=== PATIENT | female | born 1985 | race Caucasian/White ===

== ENCOUNTER 2021-04-13 20:05 | Outpatient (CLI) | payer OTHER | END 2021-04-13 22:19 | disposition home or self-care (01) | LOC: GENOP 20:05 | DX: O47.1 False labor at or after 37 completed weeks of gestation (principal); Z3A.37 37 weeks gestation of pregnancy; O99.353 Diseases of the nervous system complicating pregnancy, third trimester; O99.613 Diseases of the digestive system complicating pregnancy, third trimester; G43.909 Migraine, unspecified, not intractable, without status migrainosus; K59.09 Other constipation | CPT/HCPCS: G0463 ==

== ENCOUNTER 2021-04-23 16:26 | Inpatient (IN) | payer BC, OTHER ==
[~2021-04-23] VITALS: Ht 167.6 cm; Wt 70.3 kg
[2021-04-23] MEDS ORDERED: ZOFRAN4 MG PO (17:41)
[2021-04-23] MEDS ORDERED: PRENATAL VITAM1 EAC3 PO (17:41)
[2021-04-23] MEDS ORDERED: PEPCID20 MG PO (17:42)
[2021-04-23 18:48] LABS: HEMOGLOBIN 10.6 gm/dl (12.3-15.3); RED BLOOD COUNT 3.56 M/UL (4.00-5.10)
[2021-04-24] MEDS ORDERED: DOCUSATE SODIU100 MG PO (20:38)
[2021-04-24] MEDS ORDERED: IBUPROFEN600 MG PO (20:38)
[2021-04-25 08:46] LABS: HEMOGLOBIN 9.2 gm/dl (12.3-15.3)
[2021-04-25] MEDS ORDERED: FERROUS SULFAT325 M2 PO (15:35)
[2021-04-25] MEDS ORDERED: HYDROCODON-ACE1 EAC4 PO (15:35)
== END 2021-04-25 18:18 | disposition home or self-care (01) | DRG 807 ==
LOC: GENOP 16:26 → OB 18:07
PROVIDERS: Obstetrics & Gynecology; ADMIT Obstetrics & Gynecology
PROC: 10E0XZZ Delivery of Products of Conception, External Approach (ICD-10-PCS; principal; 2021-04-23)
PROC: 3E033VJ Introduction of Other Hormone into Peripheral Vein, Percutaneous Approach (ICD-10-PCS; 2021-04-23)
PROC: 0U7C7ZZ Dilation of Cervix, Via Natural or Artificial Opening (ICD-10-PCS; 2021-04-23)
PROC: 10907ZC Drainage of Amniotic Fluid, Therapeutic from Products of Conception, Via Natural or Artificial Opening (ICD-10-PCS; 2021-04-23)
PROC: 0HQ9XZZ Repair Perineum Skin, External Approach (ICD-10-PCS; 2021-04-23)
PROC: 4A1HXCZ Monitoring of Products of Conception, Cardiac Rate, External Approach (ICD-10-PCS; 2021-04-23)
DX: O99.354 Diseases of the nervous system complicating childbirth (principal); Z37.0 Single live birth; O70.0 First degree perineal laceration during delivery; Z3A.39 39 weeks gestation of pregnancy; O99.02 Anemia complicating childbirth; G43.909 Migraine, unspecified, not intractable, without status migrainosus
CPT/HCPCS: 36415; 51702; 81001; 82800; 85014; 85018; 85025; 90471; 90472; 90686; 90715; J0595; J2405; J2590; J7120